=== PATIENT | male | born 2005 | race Caucasian/White ===

== ENCOUNTER 2023-03-29 14:56 | Inpatient (IN) | payer OTHER ==
[~2023-03-29] VITALS: Ht 170.2 cm; Wt 56.8 kg
[~2023-03-29 14:56] MED LIST: NOCURR
[2023-03-29] MEDS ORDERED: MORPHINE SULFATE 4 MG/ML SYRINGE IVP ONE (15:00)
[2023-03-29] MEDS ORDERED: PERTUSS(ACELL),DIPH,TET VAC/PF 0.5 ML SYRINGE IM. ONE (15:00)
[2023-03-29] MEDS ORDERED: CeFAZolin 2 GM/DEXTROSE 50 ML IV ONE (15:00)
[2023-03-29 15:53] LABS: BASOPHILS % (AUTO) 0.4 % (0.0-2.0); EOSINOPHILS % (AUTO) 0.4 % (1.0-6.0); HEMATOCRIT 45.3 % (41-53); HEMOGLOBIN 15.1 g/dL (13.5-17.5); LYMPHOCYTES # (AUTO) 4.6 K/uL (1.0-4.8); LYMPHOCYTES % (AUTO) 41.6 % (22.0-44.0); MEAN CORPUSCULAR HGB CONC 33.3 G/dL (31.0-37.0); MEAN CORPUSCULAR VOLUME 90 fL (80-100); MONOCYTES # (AUTO) 0.9 K/uL (0.1-1.0); MONOCYTES % (AUTO) 8.5 % (2.0-9.0); NEUTROPHILS # (AUTO) 5.5 K/uL (1.8-7.7); NEUTROPHILS % (AUTO) 49.1 % (40.0-70.0); PLATELET COUNT (AUTO) 304 K/uL (150-450); RED BLOOD CELL COUNT(AUTO) 5.02 MIL/uL (4.50-5.90)
[2023-03-29] MEDS ORDERED: MORPHINE SULFATE 4 MG/ML SYRINGE IVP PRN ×2 (16:00→17:30)
[2023-03-29 16:02] LABS: ANION GAP 14 mmol/L (8-16); CARBON DIOXIDE 22 mmol/L (22-29); CHLORIDE 100 mmol/L (98-107); CREATININE 1.14 mg/dL (0.60-1.30); GLOMERULAR FILTR. RATE CALC > 60 mL/min (>60); GLUCOSE,RANDOM 153 mg/dL (70-110); SODIUM SERUM 136 mmol/L (136-145); UREA NITROGEN, BLOOD 13 mg/dL (7-18)
[2023-03-29 16:03] LABS: POTASSIUM 2.9 mmol/L (3.5-5.1)
[2023-03-29] MEDS ORDERED: POTASSIUM CHLORIDE 40 MEQ in SODIUM CHLORIDE 0.9% 1,000 ML IV ONE (16:15)
[2023-03-29] MEDS ORDERED: ONDANSETRON HCL 4 MG/2 ML VIAL IVP PRN ×2 (16:30→17:30)
[2023-03-29] MEDS ORDERED: SODIUM CL IRRIG SOLN BAG 3,000 ML IRRIG ONE (17:28)
[2023-03-29] MEDS ORDERED: VANCOMYCIN HCL 1 GM/VIAL ONE (17:28)
[2023-03-29] MEDS ORDERED: ALBUTEROL SULFATE 2.5 MG/0.5 ML NEB SOLUTION NEB PRN (17:30)
[2023-03-29] MEDS ORDERED: IPRATROPIUM BROMIDE 0.5 MG/2.5 ML NEB SOLUTION NEB PRN (17:30)
[2023-03-29] MEDS ORDERED: ACETAMINOPHEN 325 MG TABLET PO PRN (17:30)
[2023-03-29] MEDS ORDERED: MORPHINE SULFATE 2 MG/ML SYRINGE IVP PRN (17:30)
[2023-03-29] MEDS ORDERED: MAGNESIUM HYDROXIDE SUSPENSION 30 ML UDCUP PO PRN (17:30)
[2023-03-29] MEDS ORDERED: BISACODYL 10 MG RECTAL RECTAL SUPPOSITORY PR PRN (17:30)
[2023-03-29] MEDS ORDERED: SODIUM CHLORIDE 0.9% 1,000 ML ONE (18:17)
[2023-03-29] MEDS ORDERED: MEPERIDINE-PF 25 MG/ML VIAL IVP PRN (18:45)
[2023-03-29] MEDS ORDERED: HYDROmorphone HCL 2 MG/ML SYRINGE IVP PRN (18:45)
[2023-03-29] MEDS ORDERED: FentaNYL CITRATE PF 100 MCG/2 ML VIAL IVP PRN (18:45)
[2023-03-29] MEDS ORDERED: BUPIVACAINE HCL/PF 0.25% 30 ML VIAL ONE (18:48)
[2023-03-29] MEDS ORDERED: BACITRACIN 28 GM OINTMENT TP ONE (18:55)
[2023-03-29] MEDS ORDERED: HYDROmorphone HCL 2 MG/ML SYRINGE ONE (19:44)
[2023-03-29] MEDS: OXYGEN THERAPY IH SCH (20:00)
[2023-03-29 20:33] VITALS: BP 125/63
[2023-03-29] MEDS: DOCUSATE SODIUM 100 MG CAPSULE PO SCH (23:38)
[2023-03-29] MEDS: CeFAZolin 2 GM/DEXTROSE 50 ML IV SCH (23:39)
[2023-03-29] MEDS: ZOLPIDEM TARTRATE 5 MG TABLET PO PRN (23:44)
[2023-03-29] MEDS: HEPARIN SODIUM,PORCINE 5,000 UNITS/ML VIAL SQ SCH (23:45)
[2023-03-30 04:21] VITALS: BP 104/54
[2023-03-30] MEDS ORDERED: ONDANSETRON HCL 4 MG/2 ML VIAL IVP ONE (06:55)
[2023-03-30] MEDS ORDERED: LIDOCAINE/PF 2% 5 ML SYRINGE IVP ONE (06:55)
[2023-03-30] MEDS ORDERED: METOCLOPRAMIDE HCL 5 MG/ML 2 ML VIAL IVP ONE (06:55)
[2023-03-30] MEDS ORDERED: SUCCINYLCHOLINE CHLORIDE 20 MG/ML 10 ML VIAL IVP ONE (06:55)
[2023-03-30] MEDS ORDERED: FentaNYL CITRATE PF 100 MCG/2 ML VIAL IVP ONE (06:55)
[2023-03-30] MEDS ORDERED: DEXAMETHASONE SOD PHOS 4 MG/ML VIAL IVP ONE (06:55)
[2023-03-30] MEDS ORDERED: PROPOFOL 1% 20 ML VIAL IVP ONE (06:55)
[2023-03-30] MEDS ORDERED: ROCURONIUM BROMIDE 10 MG/ML 5 ML VIAL IVP ONE (06:55)
[2023-03-30] MEDS ORDERED: MIDAZOLAM HCL 2 MG/2 ML VIAL IVP ONE (06:55)
[2023-03-30 07:26] LABS: EOSINOPHILS % (AUTO) 0 % (1.0-6.0); HEMATOCRIT 32.8 % (41-53); HEMOGLOBIN 11.1 g/dL (13.5-17.5); LYMPHOCYTES % (AUTO) 6.7 % (22.0-44.0); MEAN CORPUSCULAR HEMOGLOBIN 30.4 pg (26.0-34.0); MEAN CORPUSCULAR HGB CONC 33.8 G/dL (31.0-37.0); MEAN CORPUSCULAR VOLUME 90 fL (80-100); MONOCYTES # (AUTO) 1.7 K/uL (0.1-1.0); MONOCYTES % (AUTO) 11.5 % (2.0-9.0); NEUTROPHILS # (AUTO) 12.3 K/uL (1.8-7.7); NEUTROPHILS % (AUTO) 81.8 % (40.0-70.0); PLATELET COUNT (AUTO) 211 K/uL (150-450); RED BLOOD CELL COUNT(AUTO) 3.65 MIL/uL (4.50-5.90); RED CELL DISTRIBUTION WIDTH 12.5 % (11.5-14.5)
[2023-03-30 07:40] LABS: ALANINE AMINOTRANSFERASE 20 U/L (12-78); ALBUMIN 3.4 g/dL (3.4-5.0); ALKALINE PHOSPHATASE 71 U/L (46-116); ANION GAP 8 mmol/L (8-16); ASPARTATE AMINOTRANSFERASE 18 U/L (15-37); CALCIUM, TOTAL 8.4 mg/dL (8.8-10.5); CARBON DIOXIDE 26 mmol/L (22-29); CHLORIDE 104 mmol/L (98-107); CREATININE 0.83 mg/dL (0.60-1.30); GLOMERULAR FILTR. RATE CALC > 60 mL/min (>60); GLUCOSE,RANDOM 119 mg/dL (70-110); POTASSIUM 4.1 mmol/L (3.5-5.1); SODIUM SERUM 138 mmol/L (136-145); TOTAL PROTEIN, SERUM 5.9 g/dL (6.4-8.2); UREA NITROGEN, BLOOD 10 mg/dL (7-18)
[2023-03-30] MEDS: OXYGEN THERAPY IH SCH ×2 (08:00→20:00)
[2023-03-30 08:06] VITALS: BP 112/48
[2023-03-30] MEDS: PANTOPRAZOLE SODIUM 40 MG/VIAL IVP SCH (08:11)
[2023-03-30] MEDS: CeFAZolin 2 GM/DEXTROSE 50 ML IV SCH ×3 (08:11→23:47)
[2023-03-30] MEDS: DOCUSATE SODIUM 100 MG CAPSULE PO SCH ×2 (08:11→23:48)
[2023-03-30] MEDS: HEPARIN SODIUM,PORCINE 5,000 UNITS/ML VIAL SQ SCH ×3 (08:11→23:48)
[2023-03-30] MEDS: OxyCODONE HCL/ACETAMINOPHEN 10-325 MG TABLET PO PRN ×3 (10:24→23:51)
[2023-03-30] MEDS ORDERED: SODIUM CHLORIDE 0.9% 500 ML IV ONE (15:21)
[2023-03-30 15:27] VITALS: BP 101/50
[2023-03-30 19:30] VITALS: BP 97/64
[2023-03-30] MEDS: ZOLPIDEM TARTRATE 5 MG TABLET PO PRN (21:54)
[2023-03-31 04:00] VITALS: BP 116/50
[2023-03-31] MEDS: OXYGEN THERAPY IH SCH (08:00)
[2023-03-31] MEDS: DOCUSATE SODIUM 100 MG CAPSULE PO SCH (08:01)
[2023-03-31] MEDS: CeFAZolin 2 GM/DEXTROSE 50 ML IV SCH (08:01)
[2023-03-31] MEDS: HEPARIN SODIUM,PORCINE 5,000 UNITS/ML VIAL SQ SCH (08:02)
[2023-03-31] MEDS: PANTOPRAZOLE SODIUM 40 MG/VIAL IVP SCH (08:02)
[2023-03-31 08:03] VITALS: BP 94/62
[2023-03-31] MEDS: OxyCODONE HCL/ACETAMINOPHEN 10-325 MG TABLET PO PRN (11:15)
[2023-03-31] MEDS ORDERED: PERCT PO (16:32)
== END 2023-03-31 14:26 | disposition home or self-care (01) | DRG 342 ==
LOC: EMS 14:56 → 6N 18:18
PROVIDERS: ADMIT Hospitalist; ATTEND Hospitalist
PROC: 0QSMXZZ Reposition Left Tarsal, External Approach (ICD-10-PCS; principal; 2023-03-29 18:15)
DX: S92.052 Displaced other extraarticular fracture of left calcaneus (principal); R65.10 Systemic inflammatory response syndrome (SIRS) of non-infectious origin without acute organ dysfunction; E87.6 Hypokalemia; S82.52XA Displaced fracture of medial malleolus of left tibia, initial encounter for closed fracture; S92.342A Displaced fracture of fourth metatarsal bone, left foot, initial encounter for closed fracture; Z23 Encounter for immunization; Y32.XXXA Crashing of motor vehicle, undetermined intent, initial encounter; Y93.55 Activity, bike riding; Y92.481 Parking lot as the place of occurrence of the external cause; Y99.8 Other external cause status
CPT/HCPCS: 73700; 80048; 80053; 85025; 86850; 86900; 86901; 90715; 97116; 97163; 97165; 97530; 97535; 99285; C9113; J0330; J0690; J1100; J1170; J1644; J2250; J2270; J2405; J2704; J2765; J3010; J3370; J3480; J3490; J7030; J7040